=== PATIENT | male | born 1990 | race Caucasian/White ===

== ENCOUNTER 2017-07-01 20:17 | Emergency (ER) | payer SELFPAY ==
[2017-07-01 20:19] VITALS: BP 131/92; PULSE 122; RESP 20; TEMP 97.5; O2SAT 95
--- NOTE | 2017-07-01 20:24 | EDPHY ---
H & P Stated Complaint: police med clear Time Seen by Provider: 07/01/17 20:18 HPI/ROS: CHIEF COMPLAINT: Medical screening for incarceration, multiple abrasion HISTORY OF PRESENT ILLNESS: 26-year-old male arrives in custody of police, in the ER for medical screening for incarceration, reports that he had to be physically restrained by police and sustained abrasion to his bilateral knees as well as right face. Denies loss of consciousness. Denies midline C-spine pain. Denies back pain. Denies chest pain. Denies abdominal pain. Denies genitalia pain. Denies straddle injury. Tetanus is up-to-date. PRIMARY CARE PROVIDER: REVIEW OF SYSTEMS: A ten point review of systems was performed and is negative with the exception of the items mentioned in the HPI PAST MEDICAL/SURGICAL HISTORY: no anticoagulant use, no relevant medical/ surgical history SOCIAL HISTORY: Patient refused to answer whether he has been using illicit substances are not PHYSICAL EXAM 1) GENERAL: Well-developed, well-nourished, alert and oriented. He is agitated 2) HEAD: Normocephalic, atraumatic 3) HEENT: Pupils equal, round, reactive to light bilaterally. Abrasion to right cheek. Negative Horners. Nasopharynx, oropharynx, clear. No deformity or angulation of nose. No septal hematoma. No rhinorrhea. No oral trauma. Ears bilaterally with normal tympanic membranes. No hemotympanum. No fluid or blood in the external auditory canal. No raccoon eyes. No Salomon sign. Teeth are normally aligned with no gross malocclusion, TMJ bilaterally nontender, facial bones nontender including the zygomatic arch, maxilla mandible. 4) NECK: No cervical collar is on. Posterior cervical spine is nontender, no stepoff, no effusion. Full range of motion which does not elicit any midline cervical spine pain, no posterior midline tenderness, no step-off. 5) LUNGS: Clear to auscultation bilaterally, no wheezes, no rhonchi, no retractions. No obvious signs of trauma. No chest wall pain. No flaring, no grunting. Moving symmetrically. No crepitus. 6) HEART: Regular rate and rhythm, 7) ABDOMEN: No guarding, no rebound, no focal tenderness, no peritoneal signs, no signs of trauma, no ecchymosis 8) MUSCULOSKELETAL: Abrasion to bilateral lateral knees with full pain-free range of motion, full weight-bearing, no instability. Proximally distally nontender. Soft compartments. Otherwise, Moving all extremities, no focal areas of tenderness, no obvious trauma. 9) BACK: No midline vertebral tenderness, no fluctuance, no step-off, no obvious trauma, no visual or palpable abnormality. 10) SKIN: multiple abrasions bilateral lower extremity DIFFERENTIAL DIAGNOSIS: [ in no particular order including but not limited to abrasion, laceration, head injury - Personal History Current Tetanus/Diphtheria Vaccine: Unsure Current Tetanus Diphtheria and Acellular Pertussis (TDAP): Unsure - Medical/Surgical History Hx Asthma: No Hx Chronic Respiratory Disease: No Hx Diabetes: No Hx Cardiac Disease: No Hx Renal Disease: No Hx Cirrhosis: No Hx Alcoholism: No Hx HIV/AIDS: No Hx Splenectomy or Spleen Trauma: No - Social History Smoking Status: Never smoked Constitutional: Initial Vital Signs Temperature (C) 36.4 C 07/01/17 20:18 Heart Rate 122 H 07/01/17 20:18 Respiratory Rate 20 07/01/17 20:18 Blood Pressure 131/92 H 07/01/17 20:18 O2 Sat (%) 95 07/01/17 20:18 O2 Delivery Mode Room Air Allergies/Adverse Reactions: No Known Allergies Allergy (Unverified 07/01/17 20:19) Medical Decision Making ED Course/Re-evaluation: This patient is agitated. He has multiple abrasions to his bilateral knees with no underlying osseous discomfort, full weight-bearing. He is also noted to have a few discrete abrasions to his face with no reports of loss of consciousness, no evidence of basilar skull fracture, no dental trauma, no midline C-spine pain or discomfort. I do not think that imaging of his knees, head, C-spine currently indicated. Patient was also evaluated by Dr. Loco in the emergency department, secondary supervising physician. Patient's tetanus is already up-to-date. I recommended his abrasions to be cleaned, dressed with antibiotic ointment and bandages. He declines this. He has been informed of the risks including but not limited to infection. He will be discharged with law enforcement, cleared for incarceration. Departure - Departure Disposition: Law Enforcement/Court/[facility] Clinical Impression: Abrasion, left knee, initial encounter Abrasion of right knee Qualifiers: Encounter type: initial encounter Qualified Code(s): S80.211A - Abrasion, right knee, initial encounter Abrasion of face Qualifiers: Encounter type: initial encounter Qualified Code(s): S00.81XA - Abrasion of other part of head, initial encounter Condition: Good Instructions: Abrasion (ED) Additional Instructions: Return to the ER if you develop redness, swelling, discharge, warmth to the wound, red streaks going up your leg, or any other symptoms that concern you. Referrals: Follow-up, with the [facility] nurse in 24 hours [Other] - As per Instructions
== END 2017-07-01 20:25 ==
DX: S80.211A Abrasion, right knee, initial encounter (principal); S00.81XA Abrasion of other part of head, initial encounter; S80.212A Abrasion, left knee, initial encounter; X58.XXXA Exposure to other specified factors, initial encounter